=== PATIENT | male | born 1980 | race Caucasian/White ===

== ENCOUNTER 2019-05-15 12:14 | Emergency (ER) | payer OTHER, SELFPAY ==
[2019-05-15 12:20] VITALS: BP 147/80; PULSE 96; RESP 18; TEMP 36.4; O2SAT 98
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
== END 2019-05-15 14:04 | disposition home or self-care (01) ==
PROVIDERS: Emergency Provider Physician Assistant
DX: S81.812A Laceration without foreign body, left lower leg, initial encounter (principal); V17.0XXA Pedal cycle driver injured in collision with fixed or stationary object in nontraffic accident, initial encounter
CPT/HCPCS: 12002